=== PATIENT | female | born 1940 | race Caucasian/White ===

== ENCOUNTER 2020-01-19 06:20 | Day surgery (SDC) | payer OTHER | END 2020-01-19 12:20 | disposition home or self-care (01) | LOC: AMB-ENDOS 06:20 | DX: D12.4 Benign neoplasm of descending colon (principal); D12.5 Benign neoplasm of sigmoid colon; K59.02 Outlet dysfunction constipation; K57.30 Diverticulosis of large intestine without perforation or abscess without bleeding ==

== ENCOUNTER 2021-02-18 10:00 | Inpatient (IN) | payer OTHER ==
[~2021-02-18] VITALS: Ht 157.5 cm; Wt 49.9 kg
[2021-02-18] MEDS ORDERED: LAXATIVE5 M1 PO (11:52)
[2021-02-18] MEDS ORDERED: CLARITIN5 MG PO (11:52)
[2021-02-18] MEDS ORDERED: ACID REDUCER20 M1 PO (11:52)
[2021-02-28] MEDS ORDERED: GABAPENTIN100 MG PO (10:39)
== END 2021-02-28 11:44 | disposition home or self-care (01) | DRG 331 ==
LOC: O/R 02-25 06:03 → SURH 02-25 06:03
PROVIDERS: ADMIT Surgery; ATTEND Surgery
PROC: 0DJD8ZZ Inspection of Lower Intestinal Tract, Via Natural or Artificial Opening Endoscopic (ICD-10-PCS; 2021-02-25)
PROC: 0DBN4ZZ Excision of Sigmoid Colon, Percutaneous Endoscopic Approach (ICD-10-PCS; principal; 2021-02-25 07:00)
DX: K63.89 Other specified diseases of intestine (principal); K57.30 Diverticulosis of large intestine without perforation or abscess without bleeding; K62.4 Stenosis of anus and rectum; K59.02 Outlet dysfunction constipation; F43.21 Adjustment disorder with depressed mood